=== PATIENT | male | born 1950 | race African-American/Black ===

== ENCOUNTER 2018-04-11 12:01 | Emergency (ER) | END 2018-04-11 14:53 | disposition home or self-care (01) ==

== ENCOUNTER 2018-07-23 03:50 | Emergency (ER) | payer MEDICAID, MEDICARE ==
[~2018-07-23] VITALS: Ht 182.9 cm; Wt 90.9 kg
[~2018-07-23 03:50] MED LIST: NYST1000 PO
[2018-07-23 04:06] VITALS: Ht 182.9 cm; Wt 90.9 kg
[2018-07-23] MEDS ORDERED: HYDROCODONE/APAP (10/325) TAB PO ONE (05:00)
[2018-07-23] MEDS ORDERED: ATAZ300C PO (05:17)
[2018-07-23] MEDS ORDERED: EMTR1TAB11 PO (05:17)
[2018-07-23] MEDS ORDERED: HYDR-3980 PO ×2 (05:17→09:55)
[2018-07-23] MEDS ORDERED: NORV100 PO (05:17)
[2018-07-23] MEDS ORDERED: HYDROmorphONE 1 MG/ML SYG IV STA ×3 (07:07→14:42)
[2018-07-23] MEDS ORDERED: METOCLOPRAMIDE 10 MG INJ IV STA (07:07)
[2018-07-23] MEDS ORDERED: DIPHENHYDRAMINE 50 MG INJ IV STA (07:07)
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
[2018-07-23] MEDS ORDERED: ONDANSETRON 4 MG INJ IV STA ×2 (11:12→14:42)
[2018-07-23 15:03] VITALS: BP 150/86; PULSE 87; RESP 18
== END 2018-07-23 15:04 | disposition home or self-care (01) ==
LOC: E/R 03:50
DX: R51 Headache (principal); Z21 Asymptomatic human immunodeficiency virus [HIV] infection status
CPT/HCPCS: 70450; 70480; 96374; 96375; 96376; 99285; J1170; J1200; J2405; J2765

== ENCOUNTER 2018-08-16 00:04 | Emergency (ER) | payer MEDICARE ==
[~2018-08-16] VITALS: Ht 182.9 cm; Wt 93.2 kg
[~2018-08-16 00:04] MED LIST changes: +ATAZ300C PO; +EMTR1TAB11 PO; +HYDR-3980 PO; +NORV100 PO; -NYST1000 PO
[2018-08-16 00:11] VITALS: Ht 182.9 cm; Wt 93.2 kg
[2018-08-16] MEDS ORDERED: CEPH-443 PO (03:43)
--- NOTE | 2018-08-16 03:49 | ERD ---
ER Documentation Chief Complaint Chief Complaint Bladder pain, urinary retention, dizziness, H/A, no HIV meds for 5 days, HPI This is a 68-year-old male who presents for evaluation of bladder pain, chronic dizziness, generalized headache. Patient presents somewhat agitated, with multiple complaints, however he denies chest pain or shortness of breath. He does state that he has felt generally weak, but has not had any syncope or near syncope, he denies any chest pain. He states that he would like to go back to his place of living, but he does not have a ride, and is in [place]. ROS All systems reviewed and are negative except as per history of present illness. Medications Home Meds Active Scripts Cephalexin* (Keflex*) 500 Mg Capsule, 500 MG PO QID for 7 Days, CAP Prov:JYOTI SOTO MD 08/16/18 Hydrocodone/Acetaminophen ([place] 10-325 Tablet) 1 Each Tablet, 1 TAB PO Q6H PRN for PAIN, #7 TAB Prov:PETER BONE DO 07/23/18 Reported Medications Ritonavir* (Norvir*) 100 Mg Capsule, 100 MG PO DAILY, CAP 07/23/18 Atazanavir Sulfate* (Reyataz*) 300 Mg Capsule, 300 MG PO DAILY, CAP 07/23/18 Emtricitabine-Tenofovir* (Truvada*) 200-300 Mg Tablet, 1 TAB PO DAILY, TAB 07/23/18 Hydrocodone/Acetaminophen ([place] 10-325 Tablet) 1 Each Tablet, 1 EACH PO Q6H PRN for PAIN LEVEL 6-10, TAB 07/23/18 Allergies Allergies: Coded Allergies: No Known Allergies (Unverified Allergy, Mild, 07/23/18) PMhx/Soc History of Surgery: Yes (APPY/RT CORNEAL TRANSPLANT/HEMORRHOIDECTOMY) Anesthesia Reaction: No Hx Neurological Disorder: No Hx Respiratory Disorders: No Hx Cardiac Disorders: No Hx Psychiatric Problems: No Hx Miscellaneous Medical Probl: Yes (BACK STENOSIS, PUD, HIV) Hx Alcohol Use: Yes (Every now and then) Hx Substance Use: Yes (Crystal meth, marijuana) Hx Tobacco Use: No Smoking Status: Never smoker Physical Exam Vitals Vital Signs Date Temp Pulse Resp B/P (MAP) Pulse Ox O2 O2 Flow FiO2 Time Delivery Rate 08/16/18 98.2 96 25 156/99 100 Room Air 02:04 (118) 08/16/18 98.2 84 18 153/89 99 Room Air 00:44 (110) 08/16/18 98.2 84 18 153/89 99 00:11 (110) Physical Exam Const: Anxious, agitated somewhat tangential, but is directable, appears mildly disheveled Head: Atraumatic Eyes: Normal Conjunctiva ENT: Normal External Ears, Nose and Mouth. Neck: Full range of motion. No meningismus. Resp: Clear to auscultation bilaterally Cardio: Regular rate and rhythm, no murmurs Abd: Soft, non tender, non distended. Normal bowel sounds Skin: No petechiae or rashes Back: No midline or flank tenderness Ext: No cyanosis, or edema Neur: Awake and alert Psych: Normal Mood and Affect Result Diagram: 08/16/18 0150 08/16/18 0150 Results 24 hrs Laboratory Tests Test 08/16/18 01:15 08/16/18 01:50 Urine Color YELLOW Urine Clarity SLIGHTLY CLOUDY Urine pH 6.0 Urine Specific [place] 1.018 Urine Ketones TRACE mg/dL Urine Nitrite NEGATIVE mg/dL Urine Bilirubin NEGATIVE mg/dL Urine Urobilinogen NEGATIVE mg/dL Urine Leukocyte Esterase TRACE Tad/ul Urine Microscopic RBC 2 /HPF Urine Microscopic WBC 8 /HPF Urine Bacteria FEW /HPF Urine Mucus FEW /HPF Urine Hemoglobin NEGATIVE mg/dL Urine Glucose NEGATIVE mg/dL Urine Total Protein NEGATIVE mg/dl White Blood Count 6.0 10^3/ul Red Blood Count 3.52 10^6/ul Hemoglobin 10.1 g/dl Hematocrit 31.1 % Mean Corpuscular Volume 88.4 fl Mean Corpuscular Hemoglobin 28.7 pg Mean Corpuscular Hemoglobin Concent 32.5 g/dl Red Cell Distribution Width 11.9 % Platelet Count 234 10^3/UL Mean Platelet Volume 9.0 fl Immature Granulocytes % 0.300 % Neutrophils % 75.3 % Lymphocytes % 15.7 % Monocytes % 7.3 % Eosinophils % 1.2 % Basophils % 0.2 % Nucleated Red Blood Cells % 0.0 /100WBC Immature Granulocytes # 0.020 10^3/ul Neutrophils # 4.5 10^3/ul Lymphocytes # 0.9 10^3/ul Monocytes # 0.4 10^3/ul Eosinophils # 0.1 10^3/ul Basophils # 0.0 10^3/ul Nucleated Red Blood Cells # 0.0 10^3/ul Sodium Level 138 mmol/L Potassium Level 3.1 mmol/L Chloride Level 102 mmol/L Carbon Dioxide Level 25 mmol/L Anion Gap 11 Blood Urea Nitrogen 13 mg/dl Creatinine 0.74 mg/dl Est Glomerular Filtrat Rate mL/min > 60 mL/min Glucose Level 98 mg/dl Calcium Level 9.0 mg/dl Total Bilirubin 0.5 mg/dl Direct Bilirubin 0.00 mg/dl Indirect Bilirubin 0.5 mg/dl Aspartate Amino Transf (AST/SGOT) 60 IU/L Alanine Aminotransferase (ALT/SGPT) 49 IU/L Alkaline Phosphatase 72 IU/L Troponin I 0.022 ng/ml Total Protein 6.8 g/dl Albumin 3.7 g/dl Globulin 3.10 g/dl Albumin/Globulin Ratio 1.19 Procedures/MDM This is a 68-year-old male who presents for evaluation of multiple complaints. He does endorse back pain, but no new symptoms. On exam, patient was nontoxic- appearing, he remains he medically stable in the ED, he has a reported history of HIV, however he has no evidence of infection, his white blood cell count is not markedly decreased. Cardiac workup was performed, given his vague symptoms, this was overall negative, with no signs of acute ischemia, lab work was otherwise unremarkable. 8 WBCs were noted, given his pain with urination, I think it is reasonable to treat empirically for UTI, patient does not have a ride back, and thus will await social work for the morning. He is medically cleared for discharge, at discharge she was stable and in no distress. Departure Diagnosis: Primary Impression: Urinary tract infection Urinary tract infection type: site unspecified Hematuria presence: without hematuria Qualified Codes: N39.0 - Urinary tract infection, site not specified Condition: Stable Patient Instructions: Understanding Urinary Tract Infections (UTIs) Additional Instructions: Call your primary care doctor TOMORROW for an appointment during the next 2-3 days.See the doctor sooner or return here if your condition worsens before your appointment time. JYOTI SOTO MD Aug 16, 2018 03:49
[2018-08-16] MEDS ORDERED: DIPHENHYDRAMINE 50 MG INJ ONE (03:51)
[2018-08-16] MEDS ORDERED: DIPHENHYDRAMINE 50 MG INJ IV ONE (04:00)
[2018-08-16 06:01] VITALS: BP 139/94; PULSE 84; RESP 19
== END 2018-08-16 11:14 | disposition home or self-care (01) ==
LOC: E/R 00:04
DX: N39.0 Urinary tract infection, site not specified (principal); R42 Dizziness and giddiness
CPT/HCPCS: 80053; 81001; 84484; 85025; 87086; 93005; 96374; 99284; J1200

== ENCOUNTER 2018-09-17 22:10 | Emergency (ER) | payer MEDICARE ==
[~2018-09-17] VITALS: Wt 82.3 kg
[~2018-09-17 22:10] MED LIST changes: +CEPH-443 PO
[2018-09-17 22:36] VITALS: BP 156/94; PULSE 87; RESP 18
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
[2018-09-18] MEDS ORDERED: HYDROCODONE/APAP (5/325) TAB PO ONE (01:30)
[2018-09-18] MEDS ORDERED: IBUP800T48 PO (03:42)
[2018-09-18] MEDS ORDERED: OMEP40CA6 PO (03:43)
[2018-09-18] MEDS ORDERED: CIPR500T4 PO (03:44)
[2018-09-18] MEDS ORDERED: PHEN-538 PO (03:44)
== END 2018-09-18 03:52 | disposition home or self-care (01) ==
LOC: FTE 22:10
DX: N45.1 Epididymitis (principal); Z21 Asymptomatic human immunodeficiency virus [HIV] infection status
CPT/HCPCS: 76870; 81001; 87086